=== PATIENT | female | born 1955 | race Caucasian/White ===

== ENCOUNTER 2022-07-13 20:58 | Emergency (ER) | payer OTHER, MEDICAID ==
[~2022-07-13] VITALS: Ht 152.4 cm; Wt 68.0 kg
[2022-07-13 21:38] VITALS: BP 144/76
--- NOTE | 2022-07-13 21:43 | NUR ---
TO Kim MAHER FOLLOWING TRIAGE
[2022-07-13] MEDS ORDERED: IBUPROFEN 600 MG TAB PO SCH (22:30)
[2022-07-13] MEDS ORDERED: LIDOCAINE MPF 1% 10 MG/ML VIAL INJ SCH (22:30)
[2022-07-13] MEDS ORDERED: AMOX1TAB8 PO (22:54)
[2022-07-13] MEDS ORDERED: BACI-416 TP (22:54)
[2022-07-13] MEDS ORDERED: IBUP-2213 PO (22:54)
--- NOTE | 2022-07-13 23:30 | NUR ---
Patient discharged with v/s stable. Written and verbal after care instructions given and explained. Patient alert, oriented and verbalized understanding of instructions. Ambulatory with steady gait. All questions addressed prior to discharge. ID band removed. Patient advised to follow up with PMD. Rx of MOTRIN, BACITRACIN, AND AUGMENTIN given. Patient educated on indication of medication including possible reaction and side effects. Opportunity to ask questions provided and answered.
== END 2022-07-13 23:30 | disposition home or self-care (01) ==
LOC: MED 20:58
DX: S61.412A Laceration without foreign body of left hand, initial encounter (principal); E11.9 Type 2 diabetes mellitus without complications; Z79.4 Long term (current) use of insulin; Z79.899 Other long term (current) drug therapy; W54.0XXA Bitten by dog, initial encounter; Y93.89 Activity, other specified; Y92.89 Other specified places as the place of occurrence of the external cause; Y99.8 Other external cause status
CPT/HCPCS: 12001; 90471; 90715; 99283; J2001

== ENCOUNTER 2022-07-16 13:50 | Emergency (ER) | payer MEDICARE, MEDICAID ==
[~2022-07-16] VITALS: Ht 160 cm; Wt 77.1 kg
[~2022-07-16 13:50] MED LIST: AMOX1TAB8 PO; BACI-416 TP; IBUP-2213 PO
[2022-07-16 14:33] VITALS: BP 140/92
--- NOTE | 2022-07-16 16:49 | NUR ---
PATIENT LEFT WITHOUT DISCHARGE PAPERWORK
== END 2022-07-16 16:49 | disposition home or self-care (01) ==
LOC: MED 13:50
DX: M79.642 Pain in left hand (principal); Z48.00 Encounter for change or removal of nonsurgical wound dressing
CPT/HCPCS: 99281

== ENCOUNTER 2022-07-20 11:50 | Emergency (ER) | payer MEDICARE, MEDICAID ==
[~2022-07-20] VITALS: Ht 162.6 cm; Wt 63.5 kg
[2022-07-20 12:10] VITALS: BP 121/70
--- NOTE | 2022-07-20 13:59 | NUR ---
CALLED PT AT [facility] MULTIPLE TIMES FOR DC PAPERWORK, NO RESPONSE AT THIS TIME.
== END 2022-07-20 14:33 | disposition home or self-care (01) ==
LOC: MED 11:50
DX: S61.412D Laceration without foreign body of left hand, subsequent encounter (principal); Z53.21 Procedure and treatment not carried out due to patient leaving prior to being seen by health care provider; E11.9 Type 2 diabetes mellitus without complications; Z79.2 Long term (current) use of antibiotics; Z79.1 Long term (current) use of non-steroidal anti-inflammatories (NSAID); W54.0XXD Bitten by dog, subsequent encounter
CPT/HCPCS: 99281